=== PATIENT | male | born 1960 | race Caucasian/White ===

== ENCOUNTER 2022-06-24 00:42 | Emergency (ER) | payer OTHER ==
[2022-06-24] MEDS ORDERED: Sodium Chloride 0.9% 1000 ML 1,000 ML IV STA (01:17)
[2022-06-24] MEDS ORDERED: Zofran 4 MG/2 ML VIAL IV ONE (01:17)
--- NOTE | 2022-06-24 01:17 | ERPHSYRPT ---
- History of Present Illness Time Seen by Provider: 06/24/22 01:05 Source: patient, family Exam Limitations: no limitations Patient Subjective Stated Complaint: pt states he has been having some shortness of breath for last few months with exertion. states for approx last 8 mos he has not had a voice and has some difficulty swallowing. states difficulty swallowing has gotten worse recently. has productive cough. states he coughed up a blood clot a few days ago. Triage Nursing Assessment: pt alert and oriented, answers questions approp. pt ambulatory with steady gait noted. pt short of breath with exertion. respirations nonlabored at rest. pt's voice low and hoarse. skin warm and dry. heart rate 106, sinus tach on monitor. Physician History: This is a 61-year-old white male who has a significant smoking history smoking for several decades at 1 pack/day and presents with increasing shortness of breath and increasing difficulty swallowing over the last several weeks. He has had approximately 30 pound weight loss in the last few months. He denies chest pain. He does have painful swallowing. Patient is never seen a physician. He does not take any medications chronically. He has no known drug allergies. He denies abdominal pain. He has no nausea vomiting or diarrhea. Timing/Duration: other (Several weeks) Severity: moderate Associated Symptoms: shortness of breath, other (Dysphagia), No chest pain Allergies/Adverse Reactions: No Known Drug Allergies Allergy (Verified 06/24/22 01:08) Home Medications: No Reportable Medications [No Reported Medications] 06/24/22 [History] Hx Tetanus, Diphtheria Vaccination/Date Given: No Hx Influenza Vaccination/Date Given: No Hx Pneumococcal Vaccination/Date Given: No Immunizations Up to Date: No Travel Risk - International Travel Have you traveled outside of the country in past 3 weeks: No - Coronavirus Screening Are you exhibiting any of the following symptoms?: No Close contact with a COVID-19 positive Pt in past 14-21 Days: No - Vaccine Status Have you recieved a Covid-19 vaccination: No - Review of Systems Constitutional: Weakness Eyes: No Symptoms Ears, Nose, & Throat: Other (Dysphagia) Respiratory: Dyspnea, Dyspnea on Exertion (RHODES) Cardiac: No Chest Pain Abdominal/Gastrointestinal: Dysphagia, Appetite Changes, No Abdominal Pain, No Nausea, No Vomiting, No Diarrhea, No Constipation Genitourinary Symptoms: No Symptoms Musculoskeletal: No Symptoms Skin: No Symptoms Neurological: No Symptoms Psychological: No Symptoms Endocrine: No Symptoms Hematologic/Lymphatic: No Symptoms Immunological/Allergic: No Symptoms All Other Systems: Reviewed and Negative - Past Medical History Pertinent Past Medical History: No - Past Surgical History Past Surgical History: No - Social History Smoking Status: Current every day smoker How long have you smoked: 45 yrs Exposure to second hand smoke: Yes Drug Use: marijuana Patient Lives Alone: Yes - Nursing Vital Signs Nursing Vital Signs: Initial Vital Signs Temperature 99.0 F 06/24/22 00:52 Pulse Rate 108 H 06/24/22 00:52 Respiratory Rate 18 06/24/22 00:52 Blood Pressure 176/110 06/24/22 00:52 O2 Sat by Pulse Oximetry 98 06/24/22 00:52 Pain Scale Pain Intensity 0 - Physical Exam General Appearance: mild distress, alert, anxiety Eye Exam: PERRL/EOMI, eyes nml inspection Ears, Nose, Throat Exam: normal ENT inspection, moist mucous membranes Neck Exam: normal inspection, non-tender, supple, full range of motion Respiratory Exam: normal breath sounds, lungs clear, airway intact, No chest tenderness, No respiratory distress Cardiovascular Exam: tachycardia Gastrointestinal/Abdomen Exam: soft, normal bowel sounds, No tenderness Rectal Exam: not done Back Exam: normal inspection, normal range of motion, No CVA tenderness, No vertebral tenderness Extremity Exam: normal inspection, normal range of motion, pelvis stable Neurologic Exam: alert, oriented x 3, cooperative, slag mixer II-XII nml as tested, normal mood/affect, nml cerebellar function, nml station & gait, sensation nml Skin Exam: normal color, warm, dry Lymphatic Exam: No adenopathy SpO2 Interpretation: normal SpO2: 98 O2 Delivery: Room Air - Course Nursing assessment & vital signs reviewed: Yes EKG Interpreted by Me: RATE ([id number]), Sinus Tach, NORMAL AXIS, NORMAL INTERVALS, NORMAL QRS, NORMAL ST-T, Other (No acute ischemic changes on today's EKG) Ordered Tests: Active Orders 24 hr Category Date Time Status EKG-ER Only STAT Care 06/24/22 01:17 Active IV Insertion STAT Care 06/24/22 01:17 Active CHEST WITH CONTRAST [CT] Stat Exams 06/24/22 02:21 Taken NECK WO CONTRAST [CT] Stat Exams 06/24/22 02:20 Taken CBC W DIFF Stat Lab 06/24/22 01:29 Completed CMP Stat Lab 06/24/22 01:29 Completed D-DIMER QUANTITATIVE Stat Lab 06/24/22 01:29 Completed TROPONIN Q4H Lab 06/24/22 01:29 Completed TROPONIN Q4H Lab 06/24/22 05:40 Received TROPONIN Q4H Lab 06/24/22 09:30 Ordered UA W/RFX CULTURE Stat Lab 06/24/22 01:49 Completed Medication Summary Discontinued Medications Generic Name Dose Route Start Last Admin Trade Name Ly PRN Reason Stop Dose Admin Sodium Chloride 1,000 mls @ 999 mls/hr 06/24/22 01:17 06/24/22 01:26 Sodium Chloride 0.9% 1000 Ml IV 06/24/22 02:17 999 mls/hr .Q1H1M STA Administration Sodium Chloride Confirm 06/24/22 01:24 Sodium Chloride 0.9% 1000 Ml Administered 06/24/22 01:25 Dose 1,000 mls @ ud .ROUTE .STK-MED ONE Sodium Chloride 500 mls @ 500 mls/hr 06/24/22 05:32 06/24/22 05:42 Sodium Chloride 0.9% 500 Ml IV 06/24/22 06:31 500 mls/hr .Q1H ONE Administration Sodium Chloride Confirm 06/24/22 05:35 Sodium Chloride 0.9% 500 Ml Administered 06/24/22 05:36 Dose 500 mls @ ud IV .STK-MED ONE Ondansetron HCl 4 mg 06/24/22 01:17 06/24/22 01:25 Ondansetron Hcl 4 Mg/2 Ml Vial IV 06/24/22 01:18 4 mg STAT ONE Administration Ondansetron HCl Confirm 06/24/22 01:24 Ondansetron Hcl 4 Mg/2 Ml Vial Administered 06/24/22 01:25 Dose 4 mg .ROUTE .STK-MED ONE Lab/Rad Data: Laboratory Result Diagrams 06/24/22 01:29 06/24/22 01:29 Laboratory Results 06/24/22 06/24/22 06/24/22 Range/Units 01:49 01:29 01:29 WBC (4.0-10.5) x10^3/uL RBC (4.1-5.6) x10^6/uL Hgb (12.5-18.0) g/dL Hct (42-50) % MCV (78-100) fL MCH (26-32) pg MCHC (32-36) g/dL RDW (11.5-14.0) % Plt Count (150-450) x10^3/uL MPV (7.5-11.0) fL Gran % (36.0-66.0) % Immature Gran % (Auto) (0.00-0.4) % Nucleat RBC Rel Count (0.00-0.1) % Eos # (Auto) (0-0.5) x10^3/uL Immature Gran # (Auto) (0.00-0.03) x10^3u/L Absolute Lymphs (auto) (1.0-4.6) x10^3/uL Absolute Monos (auto) (0.0-1.3) x10^3/uL Absolute Nucleated RBC (0.00-0.01) x10^3u/L Lymphocytes % (24.0-44.0) % Monocytes % (0.0-12.0) % Eosinophils % (0.00-5.0) % Basophils % (0.0-0.4) % Absolute Granulocytes (1.4-6.9) x10^3/uL Basophils # (0-0.4) x10^3/uL D-Dimer 0.55 H (0.0-0.50) mg/L Sodium (137-145) mmol/L Potassium (3.5-5.1) mmol/L Chloride (98-107) mmol/L Carbon Dioxide (22-30) mmol/L Anion Gap (5-15) MEQ/L BUN (9-20) mg/dL Creatinine (0.66-1.25) mg/dL Estimated GFR ML/MIN Glucose (74-106) mg/dL Calcium (8.4-10.2) mg/dL Total Bilirubin (0.2-1.3) mg/dL AST (17-59) U/L ALT (0-50) U/L Alkaline Phosphatase (38-126) U/L Troponin I 0.014 (0.000-0.034) ng/mL Serum Total Protein (6.3-8.2) g/dL Albumin (3.5-5.0) g/dL Urinalys Dipstick Clnc MAIN LAB Urine Color DARK YELLOW (YELLOW) Urine Appearance CLEAR (CLEAR) Urine pH 6.5 (5-6) Ur Specific Willits 1.025 (1.005-1.025) POC Urine Protein Conf 30 A (Negative) Urine Ketones NEGATIVE (NEGATIVE) Urine Nitrite NEGATIVE (NEGATIVE) Urine Bilirubin SMALL A (NEGATIVE) Urine Urobilinogen 2 A (0-1) mg/dL Urine Leukocytes NEGATIVE (NEGATIVE) Urine WBC (Auto) 3-5 A (0-5) /HPF Urine RBC (Auto) 0-2 (0-2) /HPF U Hyaline Cast (Auto) 3-5 A (0-2) /LPF U Epithel Cells (Auto) NONE (FEW) /HPF Urine Bacteria (Auto) NONE SEEN (NEGATIVE) /HPF Urine RBC NEGATIVE (0-5) Morgan/ul Urine Mucus (Auto) MANY A (NEGATIVE) /HPF Ur Culture Indicated? NO Urine Glucose NEGATIVE (NEGATIVE) mg/dL 06/24/22 06/24/22 Range/Units 01:29 01:29 WBC 12.4 H (4.0-10.5) x10^3/uL RBC 4.77 (4.1-5.6) x10^6/uL Hgb 13.3 (12.5-18.0) g/dL Hct 40.4 L (42-50) % MCV 84.7 (78-100) fL MCH 27.9 (26-32) pg MCHC 32.9 (32-36) g/dL RDW 12.7 (11.5-14.0) % Plt Count 296 (150-450) x10^3/uL MPV 10.1 (7.5-11.0) fL Gran % 65.9 (36.0-66.0) % Immature Gran % (Auto) 0.6 H (0.00-0.4) % Nucleat RBC Rel Count 0.0 (0.00-0.1) % Eos # (Auto) 0.32 (0-0.5) x10^3/uL Immature Gran # (Auto) 0.07 H (0.00-0.03) x10^3u/L Absolute Lymphs (auto) 2.56 (1.0-4.6) x10^3/uL Absolute Monos (auto) 1.20 (0.0-1.3) x10^3/uL Absolute Nucleated RBC 0.00 (0.00-0.01) x10^3u/L Lymphocytes % 20.7 L (24.0-44.0) % Monocytes % 9.7 (0.0-12.0) % Eosinophils % 2.6 (0.00-5.0) % Basophils % 0.5 (0.0-0.4) % Absolute Granulocytes 8.14 H (1.4-6.9) x10^3/uL Basophils # 0.06 (0-0.4) x10^3/uL D-Dimer (0.0-0.50) mg/L Sodium 140 (137-145) mmol/L Potassium 3.3 L (3.5-5.1) mmol/L Chloride 105 (98-107) mmol/L Carbon Dioxide 27 (22-30) mmol/L Anion Gap 11.6 (5-15) MEQ/L BUN 13 (9-20) mg/dL Creatinine 0.78 (0.66-1.25) mg/dL Estimated GFR > 60.0 ML/MIN Glucose 115 H (74-106) mg/dL Calcium 9.7 (8.4-10.2) mg/dL Total Bilirubin 0.50 (0.2-1.3) mg/dL AST 17 (17-59) U/L ALT 16 (0-50) U/L Alkaline Phosphatase 83 (38-126) U/L Troponin I (0.000-0.034) ng/mL Serum Total Protein 7.8 (6.3-8.2) g/dL Albumin 3.7 (3.5-5.0) g/dL Urinalys Dipstick Clnc Urine Color (YELLOW) Urine Appearance (CLEAR) Urine pH (5-6) Ur Specific Willits (1.005-1.025) POC Urine Protein Conf (Negative) Urine Ketones (NEGATIVE) Urine Nitrite (NEGATIVE) Urine Bilirubin (NEGATIVE) Urine Urobilinogen (0-1) mg/dL Urine Leukocytes (NEGATIVE) Urine WBC (Auto) (0-5) /HPF Urine RBC (Auto) (0-2) /HPF U Hyaline Cast (Auto) (0-2) /LPF U Epithel Cells (Auto) (FEW) /HPF Urine Bacteria (Auto) (NEGATIVE) /HPF Urine RBC (0-5) Morgan/ul Urine Mucus (Auto) (NEGATIVE) /HPF Ur Culture Indicated? 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 There is a large ulcerated infiltrative irregular laryngeal mass that extends from the level of the hyoid through the l aryngeal cartilage. It appears to arise from the mucosa with extension through the preepiglottic and paraglottic spaces involve the left area epiglottic fold at this time there is no signs of airway compromise. 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 The patient does not have airway compromise at this time. He is able to handle his secretions but is having some dysphagia with oral intake, primarily solids. He does have findings consistent with bronchitis on CTA of the chest. He has a mild hypokalemia of 3.3 and leukocytosis. I spoke with Dr. Jefferson Harper who is the hospitalist on today and patient does not require hospitalization. Patient does need to follow-up with ear nose and throat/otolaryngology for further evaluation and work-up. Patient will also need evaluation by an oncologist. Patient will benefit from a PEG tube placed. 06/24/22 06:35 Medical decision making: I had a discussion with the patient. He is comfortable being discharged to home. He will be available by his phone so that our emergency room staff can make contact with the ENT specialist on his behalf. We will attempt to obtain an appointment for him and then contact him later this morning. ENT doctor office are not open at this time. Patient was told to dr ink plenty of clear liquids including Gatorade Jell-O and soups. He was also encouraged to drink protein drinks such as boost. Counseled pt/family regarding: lab results, diagnosis, rad results - Departure Departure Disposition: Home Clinical Impression: Laryngeal mass, Dysphagia, Cervical lymphadenopathy, Bronchitis, Leukocytosis, Hypokalemia, Weight loss, unintentional Condition: Stable Critical Care Time: No Referrals: DOCTOR,NO FAMILY [Primary Care Provider] - Follow up/PCP as directed Additional Instructions: Be available at your phone so that once we obtain ENT appointment for you, we can contact you and provide you with that information. In the interim, make sure that you are drinking plenty of clear liquids including Gatorade, clear soups and Jell-O. In addition, make sure you are consuming liquid protein drinks such as boost. You may return to our emergency department or to an [facility] where there is an ENT specialist available for further evaluation and management in the event your symptoms worsen.
[2022-06-24] MEDS ORDERED: Sodium Chloride 0.9% 1000 ML 1,000 ML ONE (01:24)
[2022-06-24] MEDS ORDERED: Zofran 4 MG/2 ML VIAL ONE (01:24)
[2022-06-24 01:33] LABS: Absolute Neutrophil Ct (ANC) 8.14 x10^3/uL (1.4-6.9); Basophil (Absolute #) 0.06 x10^3/uL (0-0.4); Eosinophil % 2.6 % (0.00-5.0); Eosinophil (Absolute #) 0.32 x10^3/uL (0-0.5); Hematocrit 40.4 % (42-50); Hemoglobin 13.3 g/dL (12.5-18.0); Lymphocyte (Absolute #) 2.56 x10^3/uL (1.0-4.6); Lymphocytes % 20.7 % (24.0-44.0); Mean Cell Volume 84.7 fL (78-100); Mean Corpuscular Hemoglobin 27.9 pg (26-32); Mean Corpuscular Hgb Concent. 32.9 g/dL (32-36); Mean Platelet Volume 10.1 fL (7.5-11.0); Monocytes % 9.7 % (0.0-12.0); Neutrophil % 65.9 % (36.0-66.0); Platelet Count 296 x10^3/uL (150-450); Red Blood Count 4.77 x10^6/uL (4.1-5.6); Red Cell Distribution Width 12.7 % (11.5-14.0); White Blood Count 12.4 x10^3/uL (4.0-10.5)
[2022-06-24 01:52] LABS: ALBUMIN 3.7 g/dL (3.5-5.0); ALKALINE PHOSPHATASE 83 U/L (38-126); ANION GAP 11.6 MEQ/L (5-15); BLOOD UREA NITROGEN 13 mg/dL (9-20); CHLORIDE 105 mmol/L (98-107); Calcium 9.7 mg/dL (8.4-10.2); Carbon Dioxide 27 mmol/L (22-30); Creatinine 1 0.78 mg/dL (0.66-1.25); EST GLOMERULAR FILTRATION RATE > 60.0 ML/MIN; Glucose 115 mg/dL (74-106); Potassium 3.3 mmol/L (3.5-5.1); SGOT/AST 17 U/L (17-59); SGPT/ALT 16 U/L (0-50); SODIUM 140 mmol/L (137-145); Total Protein 7.8 g/dL (6.3-8.2)
[2022-06-24 02:00] LABS: Appearance CLEAR (CLEAR); Bilirubin SMALL (NEGATIVE); Glucose NEGATIVE (NEGATIVE); Ketones NEGATIVE (NEGATIVE); Nitrite NEGATIVE (NEGATIVE); Ph 6.5 (5-6); Protein,Urine Dip 30 (Negative); RBC NEGATIVE Ery/ul (0-5); Specific Gravity 1.025 (1.005-1.025); Urobilinogen 2 mg/dL (0-1)
[2022-06-24 02:01] LABS: Dipstick done @ ? MAIN LAB
[2022-06-24 02:02] LABS: Bacteria NONE SEEN /HPF (NEGATIVE); Mucus MANY /HPF (NEGATIVE); RBC 0-2 /HPF (0-2); Urine Cultured Indicated? NO
[2022-06-24] MEDS ORDERED: Sodium Chloride 0.9% 500 ML 500 ML IV ONE ×2 (05:32→05:35)
[2022-06-24 05:53] VITALS: O2SAT 98
[2022-06-24 06:31] LABS: INFLUENZA A NEGATIVE (NEGATIVE); INFLUENZA B NEGATIVE (NEGATIVE); RESPIRATORY SYNCTIAL VIRUS NEGATIVE (Negative); SARS-CoV-2 Xpert Express NEGATIVE (NEGATIVE)
[2022-06-24 06:48] VITALS: BP 176/98; PULSE 85
--- NOTE | 2022-06-24 08:49 | XRAY ---
Indication: Neck mass. Short of breath and loss of voice. Multiple contiguous axial images obtained through the neck without contrast. Comparison: None Irregular circumferential laryngeal soft tissue mass beginning at the level of the hyoid to the level of the true vocal cords worrisome for malignancy. Normal epiglottis. Multiple scattered small cervical lymph nodes, largest on the right level I measuring 1.1 x 1.3 cm possibly metastatic. Parotid and submandibular glands unremarkable. Major arteries and veins are normal in course and caliber with mild bilateral carotid arteriosclerotic calcifications. Visualized osseous structures intact with mild/moderate C4-C7 and degenerative changes. Inferior C4 Schmorl node. Base of the brain unremarkable. CT chest reported separately. Impression: 1. Irregular laryngeal soft tissue mass with scattered cervical lymph nodes as detailed worrisome for malignancy. 2. Incidental bilateral carotid arteriosclerotic calcifications and chronic bony findings. Comment: Preliminary interpretation made by C. No critical discrepancy.
--- NOTE | 2022-06-24 08:51 | XRAY ---
Indication: Elevated d-dimer. Cough, short of breath, congestion, and loss of voice. Neck mass. Multiple contiguous axial images obtained through the chest using 100 cc Isovue 370 contrast and PE protocol. Comparison: None Good opacification of the pulmonary arteries to include the lobar and segmental branches. No pulmonary embolus. Heart not enlarged. Aorta is mildly arteriosclerotic without aneurysm/dissection. Small mediastinal and left hilar calcified nodes. No pathologic mediastinal/hilar lymphadenopathy. Small hiatal hernia. Lungs demonstrates mild diffuse pulmonary emphysema and mild/moderate bibasilar subsegmental atelectasis/scarring. No suspicious pulmonary mass, infiltrate, or effusion. Bony thorax intact with mild/moderate degenerative changes throughout the spine. Limited upper abdomen demonstrates tiny hepatic/splenic calcified granulomas. Impression: 1. Negative pulmonary embolus. No acute cardiopulmonary abnormalities. 2. Chronic findings including pulmonary emphysema, bibasilar atelectasis/scarring, degenerative spondylosis, small hiatal hernia, and old granulomatous disease. Comment: Preliminary interpretation made by C. No critical discrepancy.
== END 2022-06-24 07:09 | disposition home or self-care (01) ==
LOC: ED 00:42
DX: R93.89 Abnormal findings on diagnostic imaging of other specified body structures (principal); R59.0 Localized enlarged lymph nodes; R13.10 Dysphagia, unspecified; J40 Bronchitis, not specified as acute or chronic; D72.829 Elevated white blood cell count, unspecified; E87.6 Hypokalemia; R63.4 Abnormal weight loss; R06.02 Shortness of breath; Z72.0 Tobacco use; Z28.310 Unvaccinated for COVID-19
CPT/HCPCS: 0241U; 36000; 36415; 70490; 71260; 80053; 81015; 84484; 85025; 85379; 93005; 96374; 99284; J2405